=== PATIENT | male | born 1950 | race African-American/Black ===

== ENCOUNTER 2022-05-15 17:44 | Emergency (ER) | payer MEDICARE ==
[~2022-05-15] VITALS: Ht 182.9 cm; Wt 78.0 kg
[2022-05-15] MEDS ORDERED: IBUPROFEN 400MG TABLET PO ONE (18:45)
[2022-05-15 19:08] VITALS: BP 113/68
== END 2022-05-15 21:13 | disposition home or self-care (01) ==
LOC: ER 17:44
DX: B34.9 Viral infection, unspecified (principal); R51.9 Headache, unspecified; R05.9 Cough, unspecified; R07.0 Pain in throat; I10 Essential (primary) hypertension; Z20.822 Contact with and (suspected) exposure to COVID-19
CPT/HCPCS: 71045; 87070; 87426; 87430; 87804; 99284; C9803